=== PATIENT | male | born 1970 | race Caucasian/White ===

== ENCOUNTER 2025-02-20 10:06 | Emergency (ER) | payer OTHER ==
[~2025-02-20] VITALS: Ht 182.8 cm; Wt 136.1 kg
== END 2025-02-20 10:59 | disposition home or self-care (01) ==
LOC: ED 10:06
DX: S00.05XA Superficial foreign body of scalp, initial encounter (principal); W44.8XXA Other foreign body entering into or through a natural orifice, initial encounter; Y93.89 Activity, other specified; Y92.89 Other specified places as the place of occurrence of the external cause; Y99.8 Other external cause status